=== PATIENT | male | born 1965 | race Caucasian/White ===

== ENCOUNTER 2017-05-14 22:33 | Emergency (ER) | payer BC ==
[~2017-05-14] VITALS: Ht 180.3 cm; Wt 105.0 kg
[2017-05-14 22:35] VITALS: BP 161/98; PULSE 80; RESP 18; TEMP 97.2; O2SAT 98
--- NOTE | 2017-05-14 23:50 | PD ---
HPI Chief Complaint: ENT Complaint Time Seen by Provider: 23:35 Travel History International Travel<30 days: No Contact w/Intl Traveler<30days: No Traveled to known affect area: No History of Present Illness HPI The patient is a 51-year-old male who presents to the emergency department for a clogged left ear canal. The patient is currently visiting from [facility], on vacation with his family. He notes a one-week history of a clogged left ear with decreased ability to hear out of the left ear. He states that sounds sound muffled from the left ear, denies any tinnitus. He did use [id number] earwax removal and tried using hydrogen peroxide to break up the wax, however, was unsuccessful. He denies any difficulty with the right ear. He denies any drainage from the left ear, fever , chills, or sweats. He denies any trauma to the left ear. Symptoms are moderate. PFSH Past Medical History Medical History: Denies Significant Hx Diminished Hearing: No Immunizations Current: Yes Past Surgical History Surgical History: No Previous Surgery Social History Alcohol Use: No Tobacco Use: No Substance Use: No Allergies-Medications (Allergen,Severity, Reaction): Coded Allergies: No Known Allergies (Unverified , 05/14/17) Review of Systems General / Constitutional: No: Fever HENT: Positive: Other (As noted in the history of present illness), No: Vertigo , Lightheadedness Gastrointestinal: No: Nausea, Vomiting Skin: No Rash, No Itching Neurologic: No: Dizziness Physical Exam Narrative GENERAL: Awake, alert, pleasant 51-year-old male who appears his stated age and is in no acute respiratory distress. SKIN: Focused skin assessment warm/dry. HEAD: Atraumatic. Normocephalic. EYES: Pupils equal and round. No scleral icterus. No injection or drainage. ENT: No nasal bleeding or discharge. Mucous membranes pink and moist. The left tympanic membrane cannot be visualized. The left EAC has an obvious cerumen impaction. No tragal tenderness. The right tympanic membrane cannot be visualized, the right EAC had a cerumen impaction. No tragal tenderness. NECK: Trachea midline. No JVD. MUSCULOSKELETAL: No obvious deformities. No clubbing. No cyanosis. No edema. NEUROLOGICAL: Awake and alert. No obvious cranial nerve deficits. Motor grossly within normal limits. Normal speech. PSYCHIATRIC: Appropriate mood and affect; insight and judgment normal. Data Data Last Documented VS Vital Signs Date Time Temp Pulse Resp B/P (MAP) Pulse Ox O2 Delivery O2 Flow Rate FiO2 05/14/17 22:35 97.2 80 18 161/98 (119) 98 Orders Orders Ear Irrigation (05/14/17 23:46) MDM Medical Decision Making Medical Screen Exam Complete: Yes Emergency Medical Condition: Yes Medical Record Reviewed: Yes Differential Diagnosis Differential diagnosis includes cerumen impaction, otitis media, serous otitis, otitis externa, perforated tympanic membrane. Narrative Course The patient's ears were irrigated bilaterally with warm water. There were a few large chunks of wax removed. However, the patient became slightly dizzy. The ear canal was reevaluated, unable to visualize the TMs. I offered to irrigate the ear more versus outpatient irrigation with Debrox drops. The patient would prefer to do it as an outpatient. He is advised not to use Q- tips. Debrox drops and irrigation with warm fluid at home. Follow-up with his primary physician when he returns home to [place]. Diagnosis Primary Impression: Bilateral impacted cerumen Patient Instructions: General Instructions Additional Instructions: Do not use Q-tips. Debrox drops and irrigation with warm fluid as needed. Follow-up with your primary physician. Return if symptoms worsen or progress. Disposition: 01 DISCHARGE HOME Condition: Stable Leonardo Oconnor MD May 14, 2017 23:50
== END 2017-05-15 00:35 | disposition home or self-care (01) ==
LOC: NEPD 22:33
DX: H61.23 Impacted cerumen, bilateral (principal)
CPT/HCPCS: 99283